=== PATIENT | male | born 1995 | race Caucasian/White ===

== ENCOUNTER 2017-03-20 19:29 | Emergency (ER) | payer BC, OTHER ==
[2017-03-20 20:20] VITALS: BP 135/75
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
--- OUTSIDE RECORDS SUMMARY | 2017-03-20 20:41 | XMS REPORT | Continuity of Care Document ---
:1995 Author Organization [facility] ([facility]) [place] [address] Phone [phone] Care Team Providers Name Role Phone Ida, Bryon Primary Care Provider [phone] Source Comments This disclosure is being made pursuant to the Care Everywhere program, applicable federal and state laws, and may not contain all informaitonavailable regarding this patient.[facility] ([facility]) Active Allergies and Adverse Reactions Allergen Noted Date Severity Reactions Comments Latex 05/14/2010 Urticaria (Hives) Current Medications No known medications Active Problems Not on file Social History Tobacco Use Types Packs/Day Years Used Date Never Assessed Last Filed Vital Signs Vital Sign Reading Time Taken Blood Pressure 122/64 05/14/2010 5:22 PM CDT Pulse 80 05/14/2010 5:22 PM CDT Temperature 36.4 C (97.5 F) 05/14/2010 5:22 PM CDT Respiratory Rate 16 05/14/2010 5:22 PM CDT Height 1.702 m (5' 7") 05/14/2010 5:22 PM CDT Weight 57.607 kg (127 lb) 05/14/2010 5:22 PM CDT Body Mass Index 19.89 05/14/2010 5:22 PM CDT Oxygen Saturation 100% 05/14/2010 5:22 PM CDT Plan of Care Health Maintenance Due Date Last Done Comments Hepatitis B Vaccine (1 of 3 - Primary Series) 1995 HPV Vaccine (1 of 3 - Male 3 Dose Series) 2006 Tdap Vaccine 2006 Meningococcal Vaccine (1 of 1) 2011 Lipid Disorder Screening 2013 MMR Vaccine 2013 Td Vaccine 2013 Varicella Vaccine (1 of 2 - Adult - No Evidence of 2013 Immunity) Influenza Vaccine: Seasonal (#1) 06/11/2016 Results from Last 3 Months Not on file
== END 2017-03-20 20:31 | disposition home or self-care (01) ==
LOC: ER 19:29
DX: Z03.89 Encounter for observation for other suspected diseases and conditions ruled out (principal)